=== PATIENT | male | born 1990 | race Two or more races ===

== ENCOUNTER 2016-10-28 16:31 | Emergency (ER) | payer SELFPAY ==
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
[2016-10-28 18:43] VITALS: BP 123/67
== END 2016-10-28 18:43 | disposition home or self-care (01) ==
LOC: ER 16:31
DX: H10.89 Other conjunctivitis (principal); H57.12 Ocular pain, left eye
CPT/HCPCS: 99283

== ENCOUNTER 2019-12-15 19:21 | Emergency (ER) | payer OTHER ==
[2019-12-15 20:01] VITALS: BP 133/81
[2019-12-15] MEDS ORDERED: AZITHROMYCIN 250 MG TABLET PO ONE (20:15)
[2019-12-15] MEDS ORDERED: LIDOCAINE 1% INJ (10 MG/ML) 10 ML MDV INJ ONE (20:15)
[2019-12-15] MEDS ORDERED: CEFTRIAXONE INJ 250 MG VIAL IM ONE (20:15)
--- NOTE | 2019-12-15 20:24 | ER Document Report ---
HPI - HPI Patient complains to provider of: Skin rash Time Seen by Provider: 12/15/19 20:15 Onset/Duration: Persistent Quality of pain: No pain Pain Level: Denies Context: Patient presents complaining of skin rash for the past 10 months. Patient states that the lesions have just continued to spread. Patient states that they are mildly pruritic only whenever he gets hot. Patient states the lesions started to the trunk and have just spread to the trunk and the upper extremities only. Patient also states that he was recently told his partner tested positive for chlamydia. Patient is requesting treatment for chlamydia as well. Patient denies any dysuria or penile discharge. Associated Symptoms: Other - Skin rash Exacerbated by: Denies Relieved by: Denies Similar symptoms previously: No Recently seen / treated by doctor: No - ROS ROS below otherwise negative: Yes Systems Reviewed and Negative: Yes All other systems reviewed and negative - CONSTITUTIONAL Constitutional: DENIES: Fever, Chills - EENT EENT: DENIES: Sore Throat - NEURO Neurology: DENIES: Headache - GASTROINTESTINAL Gastrointestinal: DENIES: Nausea - URINARY Urinary: DENIES: Dysuria, Urgency, Frequency - REPRODUCTIVE Reproductive: DENIES: Abnormal bleeding / discharge - DERM Skin Color: Normal Skin Problems: Rash Past Medical History - General Information source: Patient - Social History Smoking Status: Never Smoker Frequency of alcohol use: None Drug Abuse: None Occupation: Foodservice Family History: Reviewed & Not Pertinent Patient has homicidal ideation: No - Medical History Medical History: Negative Renal/ Medical History: Denies: Hx Peritoneal Dialysis Surgical Hx: Negative - Immunizations Hx Diphtheria, Pertussis, Tetanus Vaccination: Yes Vertical Provider Document - CONSTITUTIONAL Agree With Documented VS: Yes Exam Limitations: No Limitations General Appearance: WD/WN, No Apparent Distress - INFECTION CONTROL TRAVEL OUTSIDE OF THE [place] IN LAST 30 DAYS: No - HEENT HEENT: Atraumatic, Normocephalic - NECK Neck: Normal Inspection, Supple. negative: Lymphadenopathy-Left, Lymphadenopathy-Right - RESPIRATORY Respiratory: Breath Sounds Normal, No Respiratory Distress, Chest Non-Tender - CARDIOVASCULAR Cardiovascular: Regular Rate, Regular Rhythm - BACK Back: Normal Inspection - MUSCULOSKELETAL/EXTREMETIES Musculoskeletal/Extremeties: MAEW, FROM - NEURO Level of Consciousness: Awake, Alert, Appropriate Motor/Sensory: No Motor Deficit - DERM Integumentary: Warm, Dry, Rash - Patient with salmon-colored annular lesions to the trunk and upper extremity, some of the lesions have coalesced into larger patches Course - Re-evaluation Re-evalutation: 12/15/19 Patient with recent exposure to chlamydia and is requesting treatment. Patient also is requesting treatment for skin rash that he has had that is gradually spread over the past 10 months. Lesions have only been contained to the trunk and to the upper extremities. Patient with lesions suspicious for tinea corporis call above patient encouraged to follow-up with a field associate for any lack of improvement or worsening of his rash symptoms. - Vital Signs Vital signs: Temp Pulse Resp BP Pulse Ox 98.4 F 59 L 16 133/81 H 99 12/15/19 19:59 12/15/19 19:59 12/15/19 19:59 12/15/19 19:59 12/15/19 19:59 Discharge - Discharge Clinical Impression: Exposure to chlamydia, Tinea corporis Condition: Stable Disposition: HOME, SELF-CARE Instructions: Azithromycin ([facility]), Chlamydia ([facility]), Ringworm (Tinea Corporis) ([facility]), Rocephin ([facility]) Additional Instructions: Return immediately for any new or worsening symptoms Followup with your primary care provider, call tomorrow to make a followup appointment Follow-up with dermatology for any persistent problems. Prescriptions: Butenafine HCl 1 applic TP DAILY #30 cream..g. Referrals: ADIEL BEATTY DO [ACTIVE STAFF] - Follow up as needed
== END 2019-12-15 21:10 | disposition home or self-care (01) ==
LOC: ER 19:21
DX: B35.4 Tinea corporis (principal); Z20.2 Contact with and (suspected) exposure to infections with a predominantly sexual mode of transmission
CPT/HCPCS: 99284; 96372; J0696